=== PATIENT | female | born 1965 | race Caucasian/White ===

== ENCOUNTER 2017-05-30 07:38 | Emergency (ER) | payer BC ==
[2017-05-30 08:46] LABS: ABS Basophils 0.1 10^3/ul (0-0.2); ABS Eosinophils 0.4 10^3/ul (0-0.6); ABS Lymphocytes 0.8 10^3/ul (1.0-4.8); ABS Monocytes 0.5 10^3/ul (0-0.8); ABS Neutrophils 3.4 10^3/ul (1.5-7.7); ABS Nucleated RBC 0 10^3/ul; Eosinophil % 7.3 % (0-6); Hematocrit 37 % (35-47); Hemoglobin 12.6 g/dl (12.0-16.0); Mean Corpuscular HGB Conc 34 g/dl (31-36); Mean Corpuscular Hemoglobin 32 pg (27-31); Mean Corpuscular Volume 95 fL (80-97); Mean Platelet Volume 8 um3 (7.4-10.4); Nucleated Red Blood Cells % 0; Platelet Count 206 10^3/ul (150-450); Red Blood Count 3.91 10^6/ul (4.0-5.4); Red Cell Distribution Width 13 % (10.5-15); White Blood Count 5.1 10^3/ul (3.5-10.8)
[2017-05-30 09:04] LABS: EGFR Non-African American 72.8 (>60); Uric Acid 4.9 mg/dL (2.3-6.6)
--- NOTE | 2017-05-30 09:46 | RAD ---
INDICATION: Pain and swelling. History of DVTs COMPARISON: None TECHNIQUE: Duplex interrogation of the Lowerextremity was performed. FINDINGS: Deep veins: The common femoral, great saphenous, profunda femoris, proximal, mid, and distal deep femoral, popliteal, posterior tibial, and peroneal veins are patent. There is evidence of recanalization of the posterior tibial and distal deep femoral veins consistent with old thrombus. Superficial veins: There are no findings of superficial thrombophlebitis. Popliteal fossa:There is no evidence of a popliteal cyst. Soft tissues:There is soft tissue edema. IMPRESSION: NO EVIDENCE OF ACUTE DEEP VENOUS THROMBOSIS
[2017-05-30 10:05] LABS: Urine Appearance Clear; Urine Blood 2+ (Negative); Urine Color Straw; Urine Ketones Negative (Negative); Urine Protein Negative (Negative); Urine Specific Gravity 1.003 (1.010-1.030); Urine Urobilinogen Negative (Negative)
[2017-05-30] MEDS ORDERED: cefTRIAXone(*) 1 GM in NS 0.9% 50 ML* 50 ML IVPB ONE (10:44)
[2017-05-30] MEDS ORDERED: NS 0.9% 50 ML* 50 ML ONE (11:42)
[2017-05-30] MEDS ORDERED: cefTRIAXone 1000 MG SYRINGE IVPB ONCE IVPB ONE ×2 (12:00)
[2017-05-30 12:25] VITALS: BP 92/72
--- NOTE | 2017-06-01 12:22 | ED ---
Neal Rocha Angela, scribed for Humberto Naranjo MD on 05/30/17 at 0828 . Skin Complaint - HPI Summary HPI Summary: This pt is a 52 y/o female presenting to [facility] c/o right lower leg redness and pain x2 days. Pt reports she had cellulitis approximately 1 month ago on right leg and was treated with Keflex. She states she noticed her right lower leg become red and warm about 2 days ago. Pt notes mild right leg pain. Denies fever , chills. Pt saw Dr. Ellis approx 2 weeks ago for a consult and had a CT of abdomen/ pelvis for vascular. 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 - History of Current Complaint Chief Complaint: EDExtremityLower Stated Complaint: RT LEG PAIN Hx Obtained From: Patient Onset/Duration: Started Days Ago - 2, Atraumatic, Still Present Skin Exposure Onset/Duration: Days Ago - 2 Timing: Lasting Days - 2 Current Severity: Mild Pain Intensity: 2 Pain Scale Used: 0-10 Numeric Skin Location: Leg - right lower leg Character: Swelling, Redness, Painful Aggravating Symptom(s): Nothing Alleviating Symptom(s): Nothing Associated Signs & Symptoms: Negative Related History: Other: - cellulitis 1 month ago on right lower leg - Allergy/Home Medications Allergies/Adverse Reactions: Allergies Allergy/AdvReac Type Severity Reaction Status Date / Time No Known Allergies Allergy Verified 04/06/15 02:27 Home Medications: Home Medications Levothyroxine TAB* [Synthroid TAB*] 50 mcg PO DAILY 05/30/17 [History] Rivaroxaban TAB(*) [Xarelto 10 mg (*)] 10 mg PO DAILY 05/30/17 [History] PMH/Surg Hx/FS Hx/Imm Hx Endocrine/Hematology History: Reports: Hx Thyroid Disease - Hypothyroid Denies: Hx Diabetes Cardiovascular History: Reports: Hx Deep Vein Thrombosis - RLE x3, LLE x1 Denies: Hx Hypertension History: Denies: Hx Renal Disease - Surgical History Surgery Procedure, Year, and Place: 1989 Infectious Disease History: No Infectious Disease History: Denies: Traveled Outside the [place] in Last 30 Days - Family History Known Family History: Negative: Hypertension, Diabetes - Social History Alcohol Use: Occasionally Substance Use Type: Reports: None Smoking Status (MU): Never Smoked Tobacco Review of Systems Negative: Fever, Chills Cardiovascular: Negative Respiratory: Negative Gastrointestinal: Negative Musculoskeletal: Other - right leg pain Skin: Other - right leg redness and warmth. Neurological: Negative All Other Systems Reviewed And Are Negative: Yes Physical Exam - Summary Physical Exam Summary: VITAL SIGNS: Reviewed. GENERAL: Patient is a well-developed and nourished female who is lying comfortable in the stretcher. Patient is not in any acute respiratory distress. HEAD AND FACE: No signs of trauma. No ecchymosis, hematomas or skull depressions. No sinus tenderness. EYES: PERRLA, EOMI x 2, No injected conjunctiva, no nystagmus. EARS: Hearing grossly intact. Ear canals and tympanic membranes are within normal limits. MOUTH: Oropharynx within normal limits. NECK: Supple, trachea is midline, no adenopathy, no JVD, no carotid bruit, no c- spine tenderness, neck with full ROM. CHEST: Symmetric, no tenderness at palpation LUNGS: Clear to auscultation bilaterally. No wheezing or crackles. CVS: Regular rate and rhythm, S1 and S2 present, no gallops appreciated. There is an ejection systolic murmur. ABDOMEN: Soft, non-tender. No signs of distention. No rebound no guarding, and no masses palpated. Bowel sounds are normal. EXTREMITIES: FROM in all major joints, no edema, no cyanosis or clubbing. RLE: right lower extremity with erythema, swelling, and tenderness especially in the anterior aspect of the lower leg. NEURO: Alert and oriented x 3. No acute neurological deficits. Speech is normal and follows commands. SKIN: Dry and warm Triage Information Reviewed: Yes Vital Signs On Initial Exam: Initial Vitals Temp Pulse Resp BP Pulse Ox 97.2 F 84 18 122/55 100 05/30/17 07:40 05/30/17 07:40 05/30/17 07:40 05/30/17 07:40 05/30/17 07:40 Vital Signs Reviewed: Yes Diagnostics - Vital Signs Vital Signs Temp Pulse Resp BP Pulse Ox 05/30/17 07:40 97.2 F 84 18 122/55 100 - Laboratory Lab Results: Lab Results 05/30/17 05/30/17 05/30/17 Range/Units 08:38 08:38 08:38 WBC 5.1 (3.5-10.8) 10^3/ul RBC 3.91 L (4.0-5.4) 10^6/ul Hgb 12.6 (12.0-16.0) g/dl Hct 37 (35-47) % MCV 95 (80-97) fL MCH 32 H (27-31) pg MCHC 34 (31-36) g/dl RDW 13 (10.5-15) % Plt Count 206 (150-450) 10^3/ul MPV 8 (7.4-10.4) um3 Neut % (Auto) 66.4 (38-83) % Lymph % (Auto) 16.0 L (25-47) % [place] % (Auto) 8.9 H (0-7) % Eos % (Auto) 7.3 H (0-6) % Baso % (Auto) 1.4 (0-2) % Absolute Neuts (auto) 3.4 (1.5-7.7) 10^3/ul Absolute Lymphs (auto) 0.8 L (1.0-4.8) 10^3/ul Absolute Monos (auto) 0.5 (0-0.8) 10^3/ul Absolute Eos (auto) 0.4 (0-0.6) 10^3/ul Absolute Basos (auto) 0.1 (0-0.2) 10^3/ul Absolute Nucleated RBC 0 10^3/ul Nucleated RBC % 0 Sodium 137 (133-145) mmol/L Potassium 3.8 (3.5-5.0) mmol/L Chloride 105 (101-111) mmol/L Carbon Dioxide 27 (22-32) mmol/L Anion Gap 5 (2-11) mmol/L BUN 10 (6-24) mg/dL Creatinine 0.83 (0.51-0.95) mg/dL Est GFR ( Amer) 93.6 (>60) Est GFR (Non-Af Amer) 72.8 (>60) BUN/Creatinine Ratio 12.0 (8-20) Glucose 90 (70-100) mg/dL Lactic Acid 0.8 (0.5-2.0) mmol/L Uric Acid 4.9 (2.3-6.6) mg/dL Calcium 8.7 (8.6-10.3) mg/dL Total Bilirubin 0.40 (0.2-1.0) mg/dL AST 13 (13-39) U/L ALT 7 (7-52) U/L Alkaline Phosphatase 28 L (34-104) U/L C-Reactive Protein 10.91 H (< 5.00) mg/L Total Protein 6.5 (6.4-8.9) g/dL Albumin 3.9 (3.2-5.2) g/dL Globulin 2.6 (2-4) g/dL Albumin/Globulin Ratio 1.5 (1-3) Urine Color Urine Appearance Urine pH (5-9) Ur Specific [place] (1.010-1.030) Urine Protein (Negative) Urine Ketones (Negative) Urine Blood (Negative) Urine Nitrate (Negative) Urine Bilirubin (Negative) Urine Urobilinogen (Negative) Ur Leukocyte Esterase (Negative) Urine WBC (Auto) (Absent) Urine RBC (Auto) (Absent) Ur Squamous Epith Cells (Absent) Urine Bacteria (Absent) Urine Glucose (Negative) Urine Ascorbic Acid 05/30/17 Range/Units 09:23 WBC (3.5-10.8) 10^3/ul RBC (4.0-5.4) 10^6/ul Hgb (12.0-16.0) g/dl Hct (35-47) % MCV (80-97) fL MCH (27-31) pg MCHC (31-36) g/dl RDW (10.5-15) % Plt Count (150-450) 10^3/ul MPV (7.4-10.4) um3 Neut % (Auto) (38-83) % Lymph % (Auto) (25-47) % [place] % (Auto) (0-7) % Eos % (Auto) (0-6) % Baso % (Auto) (0-2) % Absolute Neuts (auto) (1.5-7.7) 10^3/ul Absolute Lymphs (auto) (1.0-4.8) 10^3/ul Absolute Monos (auto) (0-0.8) 10^3/ul Absolute Eos (auto) (0-0.6) 10^3/ul Absolute Basos (auto) (0-0.2) 10^3/ul Absolute Nucleated RBC 10^3/ul Nucleated RBC % Sodium (133-145) mmol/L Potassium (3.5-5.0) mmol/L Chloride (101-111) mmol/L Carbon Dioxide (22-32) mmol/L Anion Gap (2-11) mmol/L BUN (6-24) mg/dL Creatinine (0.51-0.95) mg/dL Est GFR ( Amer) (>60) Est GFR (Non-Af Amer) (>60) BUN/Creatinine Ratio (8-20) Glucose (70-100) mg/dL Lactic Acid (0.5-2.0) mmol/L Uric Acid (2.3-6.6) mg/dL Calcium (8.6-10.3) mg/dL Total Bilirubin (0.2-1.0) mg/dL AST (13-39) U/L ALT (7-52) U/L Alkaline Phosphatase (34-104) U/L C-Reactive Protein (< 5.00) mg/L Total Protein (6.4-8.9) g/dL Albumin (3.2-5.2) g/dL Globulin (2-4) g/dL Albumin/Globulin Ratio (1-3) Urine Color Straw Urine Appearance Clear Urine pH 7.0 (5-9) Ur Specific [place] 1.003 L (1.010-1.030) Urine Protein Negative (Negative) Urine Ketones Negative (Negative) Urine Blood 2+ A (Negative) Urine Nitrate Negative (Negative) Urine Bilirubin Negative (Negative) Urine Urobilinogen Negative (Negative) Ur Leukocyte Esterase Negative (Negative) Urine WBC (Auto) Trace(0-5/hpf) (Absent) Urine RBC (Auto) Absent (Absent) Ur Squamous Epith Cells Present A (Absent) Urine Bacteria Absent (Absent) Urine Glucose Negative (Negative) Urine Ascorbic Acid Not Reportable Result Diagrams: 05/30/17 08:38 05/30/17 08:38 Lab Statement: Any lab studies that have been ordered have been reviewed, and results considered in the medical decision making process. - Ultrasound No standard instances Ultrasound Interpretation: No Acute Changes - US of right lower extremity IMPRESSION: No evidence of acute deep venous thrombosis. Dr. Naranjo has reviewed this radiology report. Ultrasound Interpretation Completed By: Radiologist Course/Dx - Course Assessment/Plan: This pt is a 52 y/o female presenting to [facility] c/o right lower leg redness and pain x2 days. Pt reports she had cellulitis approximately 1 month ago on right leg and was treated with Keflex. She states she noticed her right lower leg become red and warm about 2 days ago. Pt notes mild right leg pain. Denies fever, chills. Pt saw Dr. Ellis approx 2 weeks ago for a consult and had a CT of abdomen/pelvis for vascular. 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 Test results without any significant abnormalities except for CRP of 10.91. In the ED course, the pt was given Rocephin. Ultrasound of the right lower extremity shows no evidence of acute deep venous thrombosis. Therefore the pt will be discharged to home with a prescription for Bactrim for cellulitis. She is instructed to return to the ED for any worsening or new symptoms. Pt understands and agrees. She ambulated out of the ED without any difficulties. Pt is hemodynamically stable, alert and oriented x3. - Differential Diagnoses - Skin Complaint Differential Diagnoses: Cellulitis, Drug Rash, Eczema - Diagnoses Provider Diagnoses: Cellulitis Discharge - Discharge Plan Condition: Stable Disposition: HOME Prescriptions: Sulfamethox/Trimethoprim DS* [Bactrim DS 800/160 TAB*] 1 tab PO BID #20 tab Patient Education Materials: Cellulitis (ED) Referrals: Lacy Gabriel MD [Primary Care Provider] - 3 Days Additional Instructions: Please follow up with your primary care provider. RETURN TO THE ED FOR ANY WORSENING SYMPTOMS. The documentation as recorded by the Neal rojas Angela accurately reflects the service I personally performed and the decisions made by , Humberto Naranjo MD.
== END 2017-05-30 12:25 | disposition home or self-care (01) ==
LOC: ED 07:38
DX: L03.115 Cellulitis of right lower limb (principal); M79.661 Pain in right lower leg
CPT/HCPCS: 36415; 80053; 81003; 81015; 83605; 84550; 85025; 86140; 87077; 87086; 96365; 99284; J0696

== ENCOUNTER 2017-10-10 22:37 | Emergency (ER) | payer OTHER ==
[2017-10-10] MEDS ORDERED: Clindamycin CAP* 150 MG PO ONE (23:42)
--- NOTE | 2017-10-10 23:43 | ED ---
Skin Complaint - HPI Summary HPI Summary: This is bob Leung documenting for attending Matilde Mercer MD. This patient is a 52 year old F presenting to ED with a chief complaint of cellulitis since 0 tonight while at work. The CC is described as on the R lower leg. The patient rates the pain 3/10 in severity. Symptoms aggravated by ambulation. Symptoms alleviated by nothing. Patient denies fever. Hx of venous stasis ulcers on left lower leg (March 2017 and April 2017). The patient is on xarelto. - History of Current Complaint Chief Complaint: EDExtremityLower Stated Complaint: RT LEG SWELLING/PAIN Hx Obtained From: Patient Onset/Duration: Started Hours Ago - since 1699 today, Still Present Timing: Constant, Lasting Hours Onset Severity: Mild Current Severity: Mild Pain Intensity: 3 Pain Scale Used: 0-10 Numeric Skin Location: Other: - L lower leg Aggravating Symptom(s): Nothing Alleviating Symptom(s): Nothing - Allergy/Home Medications Allergies/Adverse Reactions: Allergies Allergy/AdvReac Type Severity Reaction Status Date / Time No Known Allergies Allergy Verified 06/28/17 11:44 PMH/Surg Hx/FS Hx/Imm Hx Endocrine/Hematology History: Reports: Hx Thyroid Disease - Hypothyroid Denies: Hx Diabetes Cardiovascular History: Reports: Hx Deep Vein Thrombosis - RLE x3, LLE x1 Denies: Hx Hypertension, Hx Pacemaker/ICD History: Denies: Hx Renal Disease Sensory History: Denies: Hx Hearing Aid Psychiatric History: Denies: Hx Panic Disorder - Surgical History Surgery Procedure, Year, and Place: 1989 Infectious Disease History: No Infectious Disease History: Denies: Traveled Outside the [place] in Last 30 Days - Family History Known Family History: Negative: Hypertension, Diabetes - Social History Alcohol Use: Occasionally Substance Use Type: Reports: None Smoking Status (MU): Never Smoked Tobacco Review of Systems Negative: Fever Positive: Other - cellulitis on L lower leg All Other Systems Reviewed And Are Negative: Yes Physical Exam - Summary Physical Exam Summary: VITAL SIGNS: Reviewed. GENERAL: Patient is a well-developed and nourished FEMALE who is lying comfortable in the stretcher. Patient is not in any acute respiratory distress. HEAD AND FACE: No signs of trauma. No ecchymosis, hematomas or skull depressions. No sinus tenderness. EYES: PERRLA, EOMI x 2, No injected conjunctiva, no nystagmus. EARS: Hearing grossly intact. Ear canals and tympanic membranes are within normal limits. MOUTH: Oropharynx within normal limits. NECK: Supple, trachea is midline, no adenopathy, no JVD, no carotid bruit, no c- spine tenderness, neck with full ROM. CHEST: Symmetric, no tenderness at palpation LUNGS: Clear to auscultation bilaterally. No wheezing or crackles. CVS: Regular rate and rhythm, S1 and S2 present, no murmurs or gallops appreciated. ABDOMEN: Soft, non-tender. No signs of distention. No rebound no guarding, and no masses palpated. Bowel sounds are normal. EXTREMITIES: FROM in all major joints, no edema, no cyanosis or clubbing. R leg is warm, red, and midly tender . NEURO: Alert and oriented x 3. No acute neurological deficits. Speech is normal and follows commands. SKIN: R leg is warm, red, and midly tender Triage Information Reviewed: Yes Vital Signs On Initial Exam: Initial Vitals Temp Pulse Resp BP Pulse Ox 98.1 F 72 16 123/77 100 10/10/17 22:47 10/10/17 22:47 10/10/17 22:47 10/10/17 22:47 10/10/17 22:47 Vital Signs Reviewed: Yes Diagnostics - Vital Signs Vital Signs Temp Pulse Resp BP Pulse Ox 10/10/17 22:47 98.1 F 72 16 123/77 100 - Laboratory Lab Statement: Any lab studies that have been ordered have been reviewed, and results considered in the medical decision making process. Course/Dx - Course Assessment/Plan: This is a 52 yo with a hx of venous stasis. She was c/o pain and redness in the R leg since yesterday. She has no fever. Her exam showed acute cellulitis in the R leg. She was D/C home with clindamycin. - Differential Diagnoses - Skin Complaint Differential Diagnoses: Cellulitis - Diagnoses Provider Diagnoses: Cellulitis Discharge - Sign-Out/Discharge Documenting (check all that apply): Patient Departure - Discharge Plan Condition: Stable Disposition: HOME Prescriptions: Clindamycin Cap(NF) [Clindamycin Cap 300 mg Cap(NF)] 300 mg PO Q6H #30 cap Patient Education Materials: Cellulitis (ED) Referrals: Lacy Gabriel MD [Primary Care Provider] - (Follow up with your primary care provider in 1-3 days.) Additional Instructions: Put on warm compresses and elevate your leg. RETURN TO THE EMERGENCY DEPARTMENT FOR CHANGING OR WORSENING SYMPTOMS.
[2017-10-11 00:23] VITALS: BP 120/74
== END 2017-10-11 00:21 | disposition home or self-care (01) ==
LOC: ED 22:37
DX: L03.90 Cellulitis, unspecified (principal); M79.661 Pain in right lower leg
CPT/HCPCS: 99282; A9270-GY

== ENCOUNTER 2017-10-26 10:50 | Observation (INO) | payer BC ==
[2017-10-26] MEDS ORDERED: Clindamycin 900 MG IVPREMIX(* 900 MG/50 ML SDV IV ONE (12:00)
[2017-10-26 12:44] LABS: ABS Basophils 0 10^3/ul (0-0.2); ABS Eosinophils 0.6 10^3/ul (0-0.6); ABS Lymphocytes 1.1 10^3/ul (1.0-4.8); ABS Monocytes 0.3 10^3/ul (0-0.8); ABS Nucleated RBC 0 10^3/ul; Hematocrit 39 % (35-47); Hemoglobin 13.3 g/dl (12.0-16.0); Lymphocyte % 27.2 % (25-47); Mean Corpuscular HGB Conc 34 g/dl (31-36); Mean Corpuscular Hemoglobin 32 pg (27-31); Mean Corpuscular Volume 95 fL (80-97); Mean Platelet Volume 7.9 um3 (7.4-10.4); Nucleated Red Blood Cells % 0.1; Platelet Count 190 10^3/ul (150-450); Red Blood Count 4.13 10^6/ul (4.00-5.40); Red Cell Distribution Width 15 % (10.5-15)
[2017-10-26 12:53] LABS: INR 1.12 (0.77-1.02)
[2017-10-26 13:07] LABS: EGFR Non-African American 91.6 (>60)
[2017-10-26] MEDS ORDERED: Scopolamine 1.5 mg* PATCH ONE (13:49)
[2017-10-26] MEDS ORDERED: Ondansetron INJ* 2 MG/ML VIAL ONE (13:49)
[2017-10-26] MEDS ORDERED: Naproxen TAB* 250 MG ONE (13:49)
[2017-10-26] MEDS ORDERED: oxyCODONE SR TAB(*) 10 MG TAB.SR ONE (13:50)
[2017-10-26] MEDS ORDERED: LORazepam TAB(*) 1 MG ONE (13:50)
[2017-10-26] MEDS ORDERED: fentaNYL* 50 MCG/ML 5 ML VIAL (250 MCG VIAL) ONE (15:06)
[2017-10-26] MEDS ORDERED: nitroGLYCERIN DRIP* 25,000 MCG/250 ML BTL ONE (15:07)
[2017-10-26] MEDS ORDERED: Midazolam* 1 MG/ML 10 ML VIAL (10 MG) ONE (15:07)
[2017-10-26] MEDS ORDERED: Ketorolac INJ* 30 MG/ML 1 ML VIAL ONE ×2 (15:07→15:49)
[2017-10-26] MEDS ORDERED: Lidocaine 1%* 5 ML VIAL ONE (15:07)
[2017-10-26] MEDS ORDERED: Naloxone* 0.4 MG/ML 1 ML VIAL ONE (15:07)
[2017-10-26] MEDS ORDERED: Heparin 2 UNITS/ML IVPREMIX* 3,000 ML IV ONE (15:07)
[2017-10-26] MEDS ORDERED: Flumazenil* 0.1 MG/ML 5 ML MDV ONE (15:07)
[2017-10-26] MEDS ORDERED: Iohexol 350 (CONTRAST) 200 ML MDV IV ONE (15:08)
[2017-10-26] MEDS ORDERED: HYDROmorphone PCA* 20 MG/20 ML PCA.SYRING ONE (15:50)
[2017-10-26] MEDS ORDERED: Ondansetron INJ* 2 MG/ML VIAL IV PRN (18:23)
[2017-10-26] MEDS ORDERED: Acetaminophen TAB* 325 MG PO PRN (18:23)
--- NOTE | 2017-10-26 19:05 | RAD ---
CPT II Codes: G9500 Procedure(s) performed: * Pelvic arteriogram including the lower abdominal aorta, bilateral iliac arteries including the proximal portions of the superficial femoral arteries and femoral profundi. * Catheter arteriography of the bilateral uterine arteries. * Catheter embolization of the bilateral uterine arteries. * Percutaneous Minx closure device to the right common femoral artery Date of service: October 26, 2017 Indication for procedure: Heavy and irregular menstrual bleeding in the presence of a single endometrial uterine fibroid. 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 Revascularization and stenting of the left common iliac vein is indicated but prior to doing so the menstrual bleeding must be controlled to allow for appropriate antiplatelet therapy following stenting of the left common iliac vein. Comparison: MRI of the pelvis dated July 05, 2017 Contrast: 80 mL Omnipaque 300 Fluoroscopy Time: 23.5 minutes Vessels Accessed: Percutaneous access was obtained with ultrasound guidance in the right common femoral artery in the retrograde direction towards the heart. Catheter arteriography was performed with the catheter tip in the following arteries: Aorta, Bilateral common iliac arteries, Bilateral internal iliac arteries and Bilateral uterine arteries. Anesthesia: Conscious sedation with IV Fentanyl and Versed as well as local 1% lidocaine injected locally at the arteriotomy site. Conscious sedation time: Timeout: 1543 hours Case end: 1725 hours Total conscious sedation time: 1 hour and 42 minutes Additional medications: * 350 mcg IA nitroglycerin injected intermittently throughout the course of the procedure to alleviate arterial spasm. * Intra-arterial Toradol, 15 mg injected into each uterine artery, for a total of 30 mg intra-arterial. * Intravenous Toradol, 10 mg. * Prior to the procedure the patient received: Ativan 1 mg p.o. Naproxen sodium 250 mg p.o. OxyContin 10 mg p.o. Scopolamine patch 1.5 mg transdermal applied to the mastoid process. Zofran 4 mg IV Antibiotic prophylaxis was provided by Clindamycin 900 mg IV PROCEDURE NOTE AND INTRAPROCEDURAL IMAGING FINDINGS: Immediately prior to the procedure the patient signed consent after thoroughly discussing all risks and benefits. The patient was positioned on the fluoroscopy table in the supine position and the bilateral groins were shaved, prepped and draped in standard sterile fashion. Using fluoroscopic imaging the location of the right common femoral head was marked externally with a skin marker on the patient's groin. Utilizing sonographic guidance and palpation the right common femoral artery was cannulated overlying the right femoral head with an 18-gauge needle. An ultrasound image was saved. A 0.035 inch Bentson wire was slowly and smoothly advanced to the aortic bifurcation under fluoroscopic imaging. No buckling of the wire was visualized to indicate dissection. Over the wire a 5-Montenegrin SideArm sheath was advanced into the artery securing access in the arterial system. Utilizing a hydrophilic 0.035" wire and 5-Montenegrin C2 catheter the contralateral left common iliac artery was accessed. Contrast arteriography was performed through the 5-Montenegrin C2 catheter at the left common iliac artery and aorta to better discern the location of the iliac bifurcation. The wire was advanced under fluoroscopic control to the proximal left superficial femoral artery. The C2 catheter was removed and over the wire a 5 Montenegrin Merit Impress catheter was advanced over the iliac bifurcation and the reverse curve was formed in the lower abdominal aorta. Contrast arteriography was performed with the tip of the Merit Impress catheter in the left internal iliac artery to locate the left uterine artery. Utilizing the reverse curve catheter and the wire the ipsilateral right common iliac artery was selected. With the tip of the catheter in the proximal most portion of the right internal iliac artery, angiography was performed to detail the branches of the right internal iliac artery and to locate the ostium of the right uterine artery. Arteriograms in multiple oblique projections were performed to best discern the branch point of the uterine artery. The uterine artery was selected and cannulated utilizing the combination 0.035" wire and 5-Montenegrin catheter. In order to ensure maximum arterial inflow for the purpose of particle distribution, a microcatheter and wire system were advanced into the 5-Montenegrin catheter securing access into the uterine artery. Under careful fluoroscopic control access was maintained in the uterine artery while pushing back the 5-Montenegrin catheter until the tip resided more superiorly in the internal iliac artery. Prior to embolization, contrast injection into the horizontal portion of the uterine artery demonstrated no large, obvious collateral blood flow to the ovary or a definite cervicovaginal branch descending inferiorly. Intra-arterial nitroglycerin was injected intermittently to alleviate arterial spasm. Under fluoroscopic control approximately 1 vial Embospheres 500-700 microns were slowly injected into the right uterine artery to near complete stasis. Towards the end of embolization 15 mg of Toradol was injected intra-arterially. The microcatheter was pulled back into the more proximal descending portion of the uterine artery and contrast angiography depicted near complete stasis of the uterine artery. The microcatheter and microwire were removed. Contrast arteriography through the 5-Montenegrin catheter in the right internal iliac artery demonstrated patency and brisk flow through all branches of the internal iliac artery with the exception of the right uterine artery which demonstrates near complete stasis. The 0.035" wire was reinserted into the 5-Montenegrin catheter and the system was utilized to access the contralateral left internal iliac artery. With the tip of the 5 Montenegrin Merit Impress catheter in the proximal most portion of the left internal iliac artery, angiography was performed to detail the branches of the left internal iliac artery and to locate the ostium of the left uterine artery. Arteriograms in multiple oblique projections were performed to best discern the branch point of the uterine artery. Once the uterine artery was identified, the microcatheter and microwire were advanced into the parent catheter and, in conjunction with contrast angiography, the uterine artery was identified and selected with the microcatheter and wire system. Prior to embolization, contrast injection into the horizontal portion of the left uterine artery demonstrated no large, obvious collateral blood flow to the ovary or a definite cervicovaginal branch descending inferiorly. Intra-arterial nitroglycerin was injected intermittently to alleviate arterial spasm. Under fluoroscopic control approximately 1 vial Embospheres 500-700 microns and 1 vial Embospheres 700-900 microns were slowly injected into the left uterine artery to near complete stasis. Towards the end of embolization 15 mg of Toradol was injected intra-arterially. The microcatheter was pulled back into the more proximal descending portion of the uterine artery and contrast angiography depicted near complete stasis of the uterine artery. The microcatheter and microwire were removed. Contrast arteriography through the 5-Montenegrin catheter in the left internal iliac artery demonstrated patency and brisk flow through all branches of the internal iliac artery with the exception of the left uterine artery which demonstrates near complete stasis. The 5-Montenegrin catheter and 0.035" wire were utilized to access the left external iliac artery which allowed a safe removal of the 5-Montenegrin Impress catheter. The wire was then removed from the sheath. Through the side arm of the access sheath with the tip at the right external iliac artery contrast arteriography was performed to confirm stasis of flow in the right uterine artery. Contrast is seen filling the right internal iliac artery and the branch vessels but there is no flow seen in the right uterine artery. A second arteriogram was performed through the access sheath to demonstrate appropriate arteriotomy at the right common femoral artery above the bifurcation and below the inferior epigastric artery. The right groin was resterilized and draped prior to deploying a percutaneous close closure device. Under fluoroscopic control the arteriotomy was sealed with a Minx closure device successfully. Pressure was held at the common femoral arteriotomy for approximately 10 minutes. There were no signs of bleeding at the right groin access site and the site was dressed with sterile gauze and Tegaderm. The patient tolerated the procedure well and was transferred to the PACU in stable condition for routine overnight observation and pain and nausea control. SUMMARY OF PROCEDURE, IMAGING FINDINGS AND INTERVENTIONS PERFORMED: 1. Diagnostic studies performed: * Arterial access was obtained at the right common femoral artery in the retrograde direction (i.e. towards the heart) with ultrasound guidance. A sonographic image was recorded. * Diagnostic catheter angiography (necessary to perform the appropriate interventions) was performed with the catheter tip in the right external iliac artery, aorta, left common iliac arteries, bilateral internal iliac arteries and bilateral uterine arteries. * Catheter arteriography was performed of the abdominal aorta, bilateral iliac arterial system and specifically the bilateral uterine arteries. 2. Interpretation of diagnostic studies performed: * Fairly symmetrical bilateral uterine arteries exhibit hypertrophy consistent with a history of uterine fibroid. 3. Surgical interventions performed: * Near stasis embolization of the bilateral uterine arteries utilizing: * Right uterine artery: 1 vial Embospheres 500-700 microns * Left uterine artery: 1 vial Embospheres 500-700 microns and 1 vial Embospheres 700-900 microns * Percutaneous minx closure device at the right common femoral arteriotomy (the patient takes Xarelto 10 mg daily for left lower extremity chronic thrombotic syndrome) 4. Interpretation of interventions performed: * Final arteriography demonstrated near complete stasis of the bilateral uterine arteries.. PLAN: 1. The patient will be admitted to short stay surgical unit for routine overnight observation including pain and nausea control. 2. Outpatient clinical and imaging follow-up according to the Interventional Radiology protocol.
[2017-10-26] MEDS ORDERED: NS 0.9% 1000 ML* 1,000 ML IV SCH (19:15)
--- NOTE | 2017-10-26 19:28 | PN ---
Progress Note - Progress Note Date of Service: 10/26/17 SOAP: Subjective: "No pain". Pain and nausea is well controlled. Taking ice chips without nausea so far. 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 Plan: 1. Standard Interventional Radiology post UFE protocol. 2. Patient may ambulate at 2100 (percutaneous closure successfully deployed at right CF arteriotomy due to the patient's Xarelto therapy). 3. IR will see in a.m.
[2017-10-26] MEDS ORDERED: HYDROmorphone PCA* 20 MG/20 ML PCA.SYRING PCA SCH (20:00)
[2017-10-26] MEDS ORDERED: Rivaroxaban TAB(*) 10 MG PO SCH (21:00)
--- NOTE | 2017-10-26 21:39 | HP ---
CC: Dr. Lacy Gabriel; Dr. Webb * HISTORY AND PHYSICAL: DATE OF ADMISSION: 10/26/17 PRIMARY CARE PROVIDER: Dr. Lacy Gabriel. ATTENDING PHYSICIAN WHILE IN THE HOSPITAL: Dr. Bharat Oliveira * (report dictated by Tray Levine NP). CONSULTING INTERVENTIONALIST: Dr. Webb. CHIEF COMPLAINT: 1. Uterine fibroid. 2. Menorrhagia. HISTORY OF PRESENT ILLNESS: Ms. Downing is a 52-year-old female patient, who was worked up in the outpatient setting with Dr. Webb. I refer you to his consult and H and P for details. In short, Ms. Downing has been having issues with uterine fibroids, pelvic pain, heavy menses and menorrhagia for some time. She has also had heavy bleeding with her menses, which was exacerbated by her being on Xarelto for a history of DVT and factor V Leiden. She sought care with Dr. Webb due to the discomfort. It was felt that she would benefit from uterine fibroid embolization, which she underwent today and we were asked to evaluate for admission. She was evaluated in the PACU. She says she is feeling well. She says she is not really having any pain or nausea. She denies having any chest pain or shortness of breath. She says she does not feel lightheaded. She says she has good sensation to her bilateral lower extremities and there is no numbness or tingling, particularly to the right lower extremity and she says that she has no back pain, flank pain, or any pain in her right thigh or pelvic area. Because of the uterine fibroid embolization that was done today, we were asked to evaluate for admission. PAST MEDICAL HISTORY: Significant for: 1. Uterine fibroids. 2. History of DVT. 3. Factor V Leiden. 4. Hypothyroidism. PAST SURGICAL HISTORY: She has had and now she has had uterine fibroid embolization. MEDICATIONS: Home medications according to the list she provided include: 1. Synthroid 50 mcg daily. 2. Xarelto 10 mg daily. 3. Zyrtec 10 mg daily. 4. Vitamin B 1 capsule daily. 5. Lactobacillus 1 capsule p.o. daily. 6. Vitamin D 400 units p.o. daily. 7. Tylenol Extra Strength 1 to 2 tablets t.i.d. as needed. ALLERGIES TO MEDICATIONS: No known drug allergies. FAMILY HISTORY: Mother had a history of CAD. Father had a history of aortic stenosis, COPD, hypertension. SOCIAL HISTORY: She does not smoke. Rarely drinks alcohol. Surrogate decision maker is her partner. REVIEW OF SYSTEMS: There is no documented fever. She denies having any significant weight change. There is no double vision. She denies having any ear discharge. There is no rhinorrhea. There is no sore throat. There is no thyroid enlargement. She denied having any chest pain. There is no orthopnea. There is no nocturnal dyspnea. There was no abdominal pain, no nausea, no vomiting. No dysuria. There was no frequency. No seizure, no loss of conscious. No pruritus and no skin ulcerations. Review of 14 systems was completed, all others negative. PHYSICAL EXAMINATION GENERAL: At this time, Ms. Downing is a 52-year-old female patient. She appears to be well nourished and well developed. She is sitting in the PACU bed. She does not appear to be in any acute distress. VITAL SIGNS: Blood pressure 101/61 with a pulse of 53, respirations 18, O2 sat 99%, temperature 97.0. HEENT: Head: Atraumatic and normocephalic. Eyes: EOMs are intact. Sclerae anicteric and not pale. Throat: Oral mucosa appears to be moist. No oropharyngeal erythema. NECK: Supple. LUNGS: Clear to auscultation bilaterally. There were no wheezes, rales, or rhonchi. HEART: Sounds S1, S2. She had a regular rate and rhythm. There were no murmurs, rubs, or gallops appreciated. ABDOMEN: Soft. It was flat. Bowel sounds were present. EXTREMITIES: Distal CSM checks were intact to bilateral lower extremities. She is not moving the lower extremities due to restricted activity due to the postoperative instructions, but she can plantar and dorsiflex well with 5/5 strength. She has sensation. She had no peripheral edema. She is moving upper extremities with 5/5 strength. NEUROLOGICAL: She is awake, alert, and oriented x3. She had no gross focal deficits. SKIN: Intact. She does have a puncture site to the right groin, which is clean , dry, and intact. LABORATORY DATA: WBC of 4.0, RBC of 4.13, hemoglobin of 13.3, hematocrit of 39 , platelet count of 190. INR 1.12, PTT of 35.0. The sodium was 139, potassium of 4.0, chloride of 106, bicarb 28, BUN 9, creatinine of 0.68, glucose of 84, calcium 9.1. Beta-hCG was 4.04. Old medical records were reviewed. ASSESSMENT AND PLAN: Ms. Downing is a 52-year-old female patient coming into Dr. Webb's service today for an elective uterine fibroid embolization. We were asked to evaluate for admission. She will be admitted under observation status for: 1. Uterine fibroid embolization. I will defer the management to Dr. Webb and his team. 2. History of uterine fibroids. Follow up with her GI ASST and follow up with Dr. Gabriel. 3. History of deep venous thrombosis and factor V Leiden. Continue her Xarelto today. I did touch base with Dr. Webb. He said that it can be started tonight, so we are starting the Xarelto tonight. We will be mindful for any bleeding. 4. Hypothyroidism. Continue her Synthroid. 5. DVT prophylaxis: She will be on Xarelto. 6. Code status: She is a full code. 7. Fluids, electrolytes and nutrition: She can have a regular diet. TIME SPENT: Time spent on the admission was 60 minutes, greater than half the time was spent [id number] with the patient obtaining my history and physical, other half of the time was spent going over the plan of care with the patient and implementing the plan of care. I discussed the plan of care with my attending, Dr. Oliveira, he is in agreement. TRAY LEVINE NP [id number]/CPS #: [id number] SELVIN
[2017-10-26] MEDS: Ondansetron INJ* 2 MG/ML VIAL IV SCH ×2 (21:57→23:25)
[2017-10-26] MEDS: Ketorolac INJ* 15 MG/ML 1 ML VIAL IV PUSH SCH ×2 (21:57→23:25)
[2017-10-27] MEDS: Ondansetron INJ* 2 MG/ML VIAL IV SCH (05:17)
[2017-10-27] MEDS: Ketorolac INJ* 15 MG/ML 1 ML VIAL IV PUSH SCH (05:17)
[2017-10-27] MEDS ORDERED: Levothyroxine TAB* 50 MCG TAB PO SCH (06:00)
--- NOTE | 2017-10-27 07:32 | PN ---
Progress Note - Progress Note Date of Service: 10/27/17 SOAP: Subjective: Patient reports 0/10 pain and no nausea. No emesis. Has eaten crackers and drank water overnight. + void. 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 Plan: 1. Transition IV to PO medications. 2. Encourage advance diet with breakfast and ambulation. 3. Routine Interventional Radiology follow up will include RN clinic follow up telephone calls 10/30/17 and , 11/02/17. Follow up in the clinic in 6 weeks and 6 months. 4. Outpatient Rx regimen will include: Toradol 10 mg PO Q 8 hours x 3 days, dispense #15, 1 refill AFTER 3 days of Toradol, start Naproxen 250 mg PO every 12 hours x 3 days (DO NOT COMBINE TORADOL AND NAPROXEN) Keo 5/325 1 or 2 tablets PO Q 6 hours PRN x 5 days, dispense #30 (thirty), no refills Zofran 4 mg PO Q 6 hours x 5 days, dispense #30, 1 refill Scopoloamine 1.5 mg TD patch: on the morning of Monday, replace current patch with new patch and wear x 3 days 5. Patient advised to purchase laxative tea (E.g. Smooth Move) and drink one cup daily x 1 week to avoid constipation.
[2017-10-27] MEDS ORDERED: HYDROcodone/ACETAMIN 5-325 MG* 1 TAB PO PRN (07:34)
[2017-10-27 07:52] VITALS: BP 105/66
[2017-10-27] MEDS ORDERED: Ondansetron ODT TAB* 4 MG PO SCH (11:00)
[2017-10-27] MEDS ORDERED: Ketorolac TAB * 10 MG TAB PO SCH (13:00)
--- NOTE | 2017-10-28 01:02 | DS ---
CC: Dr. Webb; Dr. Oliveira; and Dr. Gabriel* DISCHARGE SUMMARY: DATE OF ADMISSION: 10/26/17. DATE OF DISCHARGE: 10/27/17. PRIMARY CARE PROVIDER: Dr. Gabriel. ATTENDING FOR THIS ADMISSION: Dr. Bharat Oliveira* (dictated by Trent Wheeler NP). CONSULTING INTERVENTIONALIST: Dr. Alok Webb. HOSPITAL COURSE: This is a pleasant 52-year-old female patient who has seen Dr. Webb as an outpatient for complaints of uterine fibroids, pain and menorrhagia. Patient elected to undergo a uterine fibroid embolization. She had that procedure successfully performed on 10/26/17. She had a very uneventful postoperative course. Her pain was well controlled. She did not require large doses of narcotics in the postprocedure period. She was seen this morning tolerating p.o. intake. She is urinating. She is passing flatus. She is complaining of no pain at this time. She denies any fever, fatigue, or chills. No headache, no shortness of breath, no chest pain, no nausea, no vomiting, no urinary complaints and no further constitutional complaints. Her disposition is to be discharged to home. She has been cleared by Dr. Webb today. DISCHARGE DIAGNOSES: 1. Uterine fibroids status post embolization. 2. Menorrhagia secondary to #1. SECONDARY DIAGNOSES: 1. History of deep vein thrombosis. 2. Factor V Leiden deficiency. 3. Hypothyroidism. MEDICATIONS FOR DISCHARGE: Include, 1. Levothyroxine 50 mcg daily. 2. Xarelto 10 mg daily. 3. Zyrtec 10 mg daily. 4. Vitamin B 1 cap daily. 5. Acidophilus 1 cap daily. 6. Vitamin D 400 units daily. 7. Scopolamine patch 1.5 mg q.72 hours. 8. Zofran tablets 4 mg q.6 hours. 9. Ketorolac tablets 10 mg q.8 hours. 10. Hydrocodone/acetaminophen 5/325 mg 2 tabs q.6 hours as needed. On the day of discharge, patient's physical exam shows well-appearing, alert, in no acute distress. Vital signs are as follows: Blood pressure 105/66, heart rate 49, respiratory rate 16, O2 saturation 98% on room air with temperature of 97.4. HEENT: Patient is atraumatic, normocephalic. PERRLA with nonicteric sclerae. Neck is supple, nontender. No JVD noted. No thyromegaly appreciated. Cardiovascular: S1, S2 present. She is bradycardic. Rate and rhythm are regular. Lungs are clear bilaterally to auscultation with no wheezing, rhonchi or rales. Abdomen is soft, nontender, nondistended, positive bowel sounds in all 4 quadrants. was deferred. Insertion site for her femoral arterial puncture dressing is clean, dry and intact. There was no pseudoaneurysm or hematoma noted. It is tender around the site, but there is no active bleeding. Musculoskeletal: There is no clubbing, no cyanosis, no edema. She has +2 distal pulses palpable. She has a steady gait and full range of motion. Neurologic: Grossly intact with no focal deficits. Psychiatric: She is cooperative and appropriate. LABORATORY DATA: WBCs 4.0, RBCs 4.13, hemoglobin 13.3, hematocrit 39, platelets 190. Sodium 139, potassium 4.0, chloride 106, CO2 28, BUN 9, creatinine 0.68, GFR 91.6, glucose 84, calcium 9.1, beta quant is 4.04, INR is 1.128. PTT is 35. DISPOSITION: Again, patient will be discharged to home. Medications as above. They have been sent to her pharmacy. FOLLOWUPS: The patient has been instructed to follow up with Dr. Webb in the clinic in 6 weeks and again in 6 months. She will receive phone calls from the nurse in Interventional Radiology on 10/30/17 and again on 11/02/17. Patient should see Dr. Lacy Gabriel, her primary care provider, as needed. DIET: Regular as tolerated. ACTIVITY: She may engage in activity as tolerated. We recommend no heavy lifting during her postprocedure time. She was also advised to purchase a laxative tea while she is on narcotics and to drink 1 cup daily for 1 week. Patient was discharged in stable condition. All questions were answered. The patient stated understanding of discharge instructions and plan of care and followup. TRENT WHEELER NP [id number]/[facility] #: [id number] [facility] MEDICAL CENTERAdeline
== END 2017-10-27 12:30 | disposition home or self-care (01) ==
LOC: CHICATH 10:50 → SSU 18:55
PROVIDERS: ADMIT Internal Medicine; ATTEND Internal Medicine
DX: N85.8 Other specified noninflammatory disorders of uterus (principal); N92.0 Excessive and frequent menstruation with regular cycle; I74.9 Embolism and thrombosis of unspecified artery; Z86.718 Personal history of other venous thrombosis and embolism; D68.51 Activated protein C resistance; E03.9 Hypothyroidism, unspecified; R11.0 Nausea
CPT/HCPCS: 36415; 37243; 75736; 76937; 80048; 84702; 85025; 85610; 85730; 93005; 99156; 99157; A9270-GY; C1769; C1884; C1887; G0378; J1170; J1644; J1885; J2250; J2310; J2405; J3010

== ENCOUNTER → 2018-03-02 06:51 | Day surgery (SDC) | payer BC ==
[~2018-03-02 06:51] MED LIST: Heparin 2 UNITS/ML IVPREMIX* 2,000 ML IV ONE; Heparin(*) 1000 UNIT/ML 10 ML VIAL CATH LAB IV ONE; Iohexol 350 (CONTRAST) 200 ML MDV IV ONE; LORazepam TAB(*) 1 MG ONE; Lidocaine 1% INJ* 10 MG/ML 30 ML SDV ONE; Midazolam* 1 MG/ML 5 ML VIAL (5 MG) ONE; ceFAZolin 1 GM in Dextrose (*) 1 GM/50 ML BAG IVPB ONE; fentaNYL* 50 MCG/ML 2 ML VIAL (100 MCG VIAL) ONE
[2018-03-02 15:28] VITALS: BP 118/75
== END | disposition home or self-care (01) ==
LOC: CHICATH 06:51
PROVIDERS: ATTEND Radiology Diagnostic Radiology
DX: I82.502 Chronic embolism and thrombosis of unspecified deep veins of left lower extremity (principal); E03.9 Hypothyroidism, unspecified; I82.422 Acute embolism and thrombosis of left iliac vein; I83.028 Varicose veins of left lower extremity with ulcer other part of lower leg; I87.1 Compression of vein
CPT/HCPCS: 37238; 37239; 76937; 85347; 99156; 99157; A9270-GY; C1725; C1769; C1876; C1887; C1894; J0690; J1644; J2250; J3010